=== PATIENT | male | born 1975 | race Caucasian/White ===

== ENCOUNTER 2025-01-25 12:00 | Inpatient (IN) | payer OTHER ==
[~2025-01-25] VITALS: Ht 177.8 cm; Wt 84.5 kg
[2025-01-25 12:42] LABS: PLATELET COUNT (AUTO) 196 K/uL (150-450); RED BLOOD CELL COUNT(AUTO) 5.36 MIL/uL (4.50-5.90); RED CELL DISTRIBUTION WIDTH 14.1 % (11.5-14.5); WHITE BLOOD COUNT (AUTO) 7.9 K/uL (4.5-11.0)
[2025-01-25 12:53] LABS: CALCIUM, TOTAL 8.3 mg/dL (8.8-10.5); CREATININE 0.54 mg/dL (0.60-1.30); GLOMERULAR FILTR. RATE CALC > 60 mL/min (>60); GLUCOSE,RANDOM 93 mg/dL (70-110); SODIUM SERUM 138 mmol/L (136-145); UREA NITROGEN, BLOOD 13 mg/dL (7-18)
[2025-01-25 13:44] LABS: ASPARTATE AMINOTRANSFERASE 82.0 U/L (15-37); TOTAL PROTEIN, SERUM 6.7 g/dL (6.4-8.2)
[2025-01-25 13:50] LABS: APPEARANCE,URINE CLEAR (CLEAR); GLUCOSE, URINE (UA) NEGATIVE (NEGATIVE); LEUKOCYTE ESTERASE ,URINE NEGATIVE (NEGATIVE); NITRATE,URINE NEGATIVE (NEGATIVE); OCCULT BLOOD,URINE NEGATIVE (NEGATIVE); SPECIFIC GRAVITIY, URINE 1.020 (1.003-1.030)
[2025-01-25] MEDS: CeFAZolin 1 GM/DEXTROSE 50 ML IV ONE (15:56)
[2025-01-25] MEDS: SODIUM CHLORIDE 0.9% 1,000 ML IV ONE (16:13)
[2025-01-25 16:37] LABS: ALCOHOL, URINE DRUG SCREEN NEGATIVE (NEGATIVE); AMPHET/METH SCREEN,URINE NEGATIVE (NEGATIVE); BARBITURATE SCREEN, URINE NEGATIVE (NEGATIVE); CANNABINOID SCREEN,URINE NEGATIVE (NEGATIVE); COCAINE SCREEN,URINE NEGATIVE (NEGATIVE); METHADONE SCREEN, URINE NEGATIVE (NEGATIVE)
[2025-01-25 16:40] LABS: PH,URINE DRUG SCREEN 7.0 (5.0-8.0)
[2025-01-25 17:03] VITALS: BP 142/95; PULSE 66; RESP 18; TEMP 98.4; O2SAT 99
[2025-01-25] MEDS: ACETAMINOPHEN 325 MG TABLET PO PRN (19:04)
[2025-01-25 19:55] VITALS: BP 149/93; PULSE 65; RESP 18; TEMP 97.7; O2SAT 98
[2025-01-25] MEDS: DOCUSATE SODIUM 100 MG CAPSULE PO SCH (21:00)
[2025-01-26 04:00] VITALS: BP 135/81; PULSE 61; RESP 18; TEMP 97.5; O2SAT 98
[2025-01-26 07:24] LABS: PLATELET COUNT (AUTO) 183 K/uL (150-450); RED BLOOD CELL COUNT(AUTO) 5.19 MIL/uL (4.50-5.90); RED CELL DISTRIBUTION WIDTH 14.1 % (11.5-14.5); WHITE BLOOD COUNT (AUTO) 6.0 K/uL (4.5-11.0)
[2025-01-26 07:36] LABS: ASPARTATE AMINOTRANSFERASE 66 U/L (15-37); CALCIUM, TOTAL 8.2 mg/dL (8.8-10.5); CREATININE 0.61 mg/dL (0.60-1.30); GLOMERULAR FILTR. RATE CALC > 60 mL/min (>60); GLUCOSE,RANDOM 80 mg/dL (70-110); SODIUM SERUM 138 mmol/L (136-145); TOTAL PROTEIN, SERUM 6.2 g/dL (6.4-8.2); UREA NITROGEN, BLOOD 9 mg/dL (7-18)
[2025-01-26] MEDS: FAMOTIDINE 20 MG TABLET PO SCH (08:26)
[2025-01-26 08:30] VITALS: BP 127/86; PULSE 62; RESP 18; TEMP 98.1; O2SAT 98
[2025-01-26] MEDS: CeFAZolin 2 GM/DEXTROSE 50 ML IV SCH (10:58)
[2025-01-26 21:02] VITALS: BP 138/88; PULSE 64; RESP 18; TEMP 98.6; O2SAT 98
[2025-01-26] MEDS: ZOLPIDEM TARTRATE 5 MG TABLET PO PRN (22:50)
[2025-01-27] MEDS ORDERED: SODIUM CHLORIDE 0.9% 500 ML IV ONE (06:24)
[2025-01-27 08:55] VITALS: BP 145/91; PULSE 61; RESP 18; TEMP 98; O2SAT 99
[2025-01-27 19:35] VITALS: BP 129/82; PULSE 67; RESP 18; TEMP 98.5; O2SAT 98
[2025-01-27] MEDS: DEXTROSE 5%-LACTATED RINGERS 1,000 ML IV SCH (23:31)
[2025-01-28 03:33] VITALS: BP 122/85; PULSE 87; RESP 18; TEMP 97.7; O2SAT 96
[2025-01-28 07:47] VITALS: BP 106/67; PULSE 65; RESP 18; TEMP 97.5; O2SAT 98
[2025-01-28] MEDS ORDERED: ETHYL ALCOHOL 62% ANTISEPTIC NASAL SANITIZER 0.6 ML AMPUL NASAL ONE (11:00)
[2025-01-28] MEDS ORDERED: CHLORHEXIDINE GLUCONATE 2% TOWELETTE [2'S/6'S] TP ONE (11:00)
[2025-01-28] MEDS ORDERED: ROCURONIUM BROMIDE 10 MG/ML 5 ML VIAL ONE (12:00)
[2025-01-28] MEDS ORDERED: PROPOFOL 1% 20 ML VIAL IVP ONE (12:00)
[2025-01-28] MEDS ORDERED: SUGAMMADEX SODIUM 200 MG/2 ML VIAL IVP ONE (12:00)
[2025-01-28] MEDS ORDERED: GLUCAGON,HUMAN RECOMBINANT 1 MG VIAL ONE (12:00)
[2025-01-28] MEDS ORDERED: METOCLOPRAMIDE HCL 5 MG/ML 2 ML VIAL ONE (12:00)
[2025-01-28] MEDS ORDERED: LIDOCAINE/PF 2% 5 ML VIAL ONE (12:00)
[2025-01-28] MEDS ORDERED: FentaNYL CITRATE PF 100 MCG/2 ML VIAL ONE (12:00)
[2025-01-28] MEDS ORDERED: ONDANSETRON HCL 4 MG/2 ML VIAL ONE (12:00)
[2025-01-28] MEDS ORDERED: MIDAZOLAM HCL 2 MG/2 ML VIAL ONE (12:00)
[2025-01-28] MEDS ORDERED: DEXAMETHASONE SOD PHOS 4 MG/ML VIAL ONE (12:00)
[2025-01-28] MEDS: CHLORHEXIDINE GLUCONATE 2% TOWELETTE [2'S/6'S] TP ONE (12:31)
[2025-01-28] MEDS: ETHYL ALCOHOL 62% ANTISEPTIC NASAL SANITIZER 0.6 ML AMPUL NASAL ONE (12:31)
[2025-01-28] MEDS: RINGERS SOLUTION,LACTATED 1,000 ML IV ONE (12:34)
[2025-01-28] MEDS: BUPIVACAINE 0.25%/EPI 1:200,000/PF 30 ML VIAL ONE (13:25)
[2025-01-28] MEDS ORDERED: RINGERS SOLUTION,LACTATED 1,000 ML IV ONE (13:50)
[2025-01-28] MEDS ORDERED: MORPHINE SULFATE 4 MG/ML SYRINGE IVP PRN (14:30)
[2025-01-28 15:33] VITALS: BP 146/98; PULSE 65; RESP 18; TEMP 97.5; O2SAT 98
[2025-01-28] MEDS: IBUPROFEN 200 MG TABLET PO SCH (15:36)
[2025-01-28] MEDS: FAMOTIDINE 20 MG TABLET PO SCH (15:36)
[2025-01-28 18:30] VITALS: BP 145/93; PULSE 67; RESP 18; O2SAT 96
[2025-01-28 19:35] VITALS: BP 136/85; PULSE 68; RESP 18; TEMP 97.7; O2SAT 98
[2025-01-28] MEDS: ONDANSETRON HCL 4 MG/2 ML VIAL IVP PRN (22:38)
[2025-01-29] MEDS: METOCLOPRAMIDE HCL 5 MG/ML 2 ML VIAL IVP ONE (02:58)
[2025-01-29 04:07] VITALS: BP 134/93; PULSE 97; RESP 18; TEMP 97.9; O2SAT 96
[2025-01-29 06:56] LABS: PLATELET COUNT (AUTO)-OB 227 K/uL (150-450); RED BLOOD CELL COUNT(AUTO) 4.73 MIL/uL (4.50-5.90); RED CELL DISTRIBUTION WIDTH 13.7 % (11.5-14.5); WHITE BLOOD COUNT (AUTO) 14.9 K/uL (4.5-11.0)
[2025-01-29 07:31] LABS: ASPARTATE AMINOTRANSFERASE 47 U/L (15-37); CALCIUM, TOTAL 8.2 mg/dL (8.8-10.5); CREATININE 0.76 mg/dL (0.60-1.30); GLOMERULAR FILTR. RATE CALC > 60 mL/min (>60); GLUCOSE,RANDOM 130 mg/dL (70-110); SODIUM SERUM 136 mmol/L (136-145); TOTAL PROTEIN, SERUM 6.2 g/dL (6.4-8.2); UREA NITROGEN, BLOOD 15 mg/dL (7-18)
[2025-01-29 08:23] VITALS: BP 127/96; PULSE 100; RESP 20; TEMP 99; O2SAT 98
[2025-01-29 20:03] VITALS: BP 118/83; PULSE 97; RESP 18; TEMP 99.1; O2SAT 95
[2025-01-30] MEDS: HYDROCODONE/ACETAMINOPHEN 5-325 MG TABLET PO PRN (02:05)
[2025-01-30 04:29] VITALS: BP 103/74; PULSE 82; RESP 18; TEMP 98.4; O2SAT 97
[2025-01-30 07:04] LABS: PLATELET COUNT (AUTO)-OB 184 K/uL (150-450); RED BLOOD CELL COUNT(AUTO) 3.80 MIL/uL (4.50-5.90); RED CELL DISTRIBUTION WIDTH 13.9 % (11.5-14.5); WHITE BLOOD COUNT (AUTO) 9.1 K/uL (4.5-11.0)
[2025-01-30 07:15] LABS: ASPARTATE AMINOTRANSFERASE 24 U/L (15-37); CALCIUM, TOTAL 8.1 mg/dL (8.8-10.5); CREATININE 0.74 mg/dL (0.60-1.30); GLOMERULAR FILTR. RATE CALC > 60 mL/min (>60); GLUCOSE,RANDOM 95 mg/dL (70-110); SODIUM SERUM 138 mmol/L (136-145); TOTAL PROTEIN, SERUM 5.8 g/dL (6.4-8.2); UREA NITROGEN, BLOOD 13 mg/dL (7-18)
[2025-01-30 07:24] VITALS: BP 117/74; PULSE 80; RESP 18; TEMP 98.2; O2SAT 97
[2025-01-30 15:49] VITALS: BP 122/72; PULSE 86; RESP 18; TEMP 97.9; O2SAT 96
[2025-01-30 20:00] VITALS: BP 123/84; PULSE 86; RESP 18; TEMP 98.8; O2SAT 96
[2025-01-31 02:54] VITALS: BP 124/83; PULSE 72; RESP 18; TEMP 98.2; O2SAT 97
[2025-01-31 06:58] LABS: PLATELET COUNT (AUTO)-OB 165 K/uL (150-450); RED BLOOD CELL COUNT(AUTO) 3.35 MIL/uL (4.50-5.90); RED CELL DISTRIBUTION WIDTH 13.9 % (11.5-14.5); WHITE BLOOD COUNT (AUTO) 6.8 K/uL (4.5-11.0)
[2025-01-31 08:32] VITALS: BP 116/91; PULSE 74; RESP 18; TEMP 98; O2SAT 96
[2025-01-31] MEDS ORDERED: SODIUM CHLORIDE 0.9% 500 ML IV ONE ×2 (10:00→18:21)
[2025-01-31] MEDS: MULTIVITAMINS WITH MINERALS, THERAPEUTIC TABLET PO SCH (12:00)
[2025-01-31 13:19] LABS: ASPARTATE AMINOTRANSFERASE 21 U/L (15-37); CALCIUM, TOTAL 7.9 mg/dL (8.8-10.5); CREATININE 0.56 mg/dL (0.60-1.30); GLOMERULAR FILTR. RATE CALC > 60 mL/min (>60); GLUCOSE,RANDOM 92 mg/dL (70-110); SODIUM SERUM 139 mmol/L (136-145); TOTAL PROTEIN, SERUM 5.4 g/dL (6.4-8.2); UREA NITROGEN, BLOOD 10 mg/dL (7-18)
[2025-01-31] MEDS: FERROUS SULFATE 325 MG EC TABLET PO SCH (17:40)
[2025-01-31 18:02] VITALS: BP 147/87; PULSE 89; RESP 18; TEMP 97.3; O2SAT 99
[2025-01-31 19:16] VITALS: BP 144/71; PULSE 93; RESP 20; TEMP 98.2; O2SAT 96
[2025-02-01 05:20] VITALS: BP 144/97; PULSE 86; RESP 18; TEMP 99; O2SAT 95
[2025-02-01 07:07] LABS: PLATELET COUNT (AUTO)-OB 210 K/uL (150-450); RED BLOOD CELL COUNT(AUTO) 3.74 MIL/uL (4.50-5.90); RED CELL DISTRIBUTION WIDTH 13.5 % (11.5-14.5); WHITE BLOOD COUNT (AUTO) 8.7 K/uL (4.5-11.0)
[2025-02-01 08:15] VITALS: BP 130/64; PULSE 70; RESP 18; TEMP 97.8; O2SAT 99
[2025-02-01] MEDS ORDERED: FERR325T27 PO (13:56)
[2025-02-01] MEDS ORDERED: MULT-1303 PO (13:57)
[2025-02-01] MEDS ORDERED: ACET-2247 PO (13:58)
[2025-02-01 15:56] VITALS: BP 130/86; PULSE 82; RESP 18; TEMP 98.1; O2SAT 97
[2025-02-01 16:37] VITALS: BP 138/88; PULSE 75; RESP 18; TEMP 98.8; O2SAT 97
== END 2025-02-01 17:09 | DRG 418 ==
LOC: EMS 12:00 → EDH 14:23 → 4S 16:57
PROVIDERS: ADMIT Internal Medicine; ATTEND Internal Medicine
PROC: 0FT44ZZ Resection of Gallbladder, Percutaneous Endoscopic Approach (ICD-10-PCS; principal; 2025-01-28 13:09)
DX: K80.66 Calculus of gallbladder and bile duct with acute and chronic cholecystitis without obstruction (principal); D62 Acute posthemorrhagic anemia; I16.0 Hypertensive urgency; N30.90 Cystitis, unspecified without hematuria; I10 Essential (primary) hypertension; Z87.442 Personal history of urinary calculi
CPT/HCPCS: 76700; 80048; 80053; 80076; 80307; 81003; 83690; 85025; 85610; 88304; 93005; 96365; 99285; G0378; J0690; J1100; J1171; J1610; J2250; J2270; J2405; J2704; J2765; J3010; J3490; J7030; J7040; J7120